=== PATIENT | male | born 1990 | race Caucasian/White ===

== ENCOUNTER 2020-03-31 08:16 | Emergency (ER) | payer OTHER, SELFPAY ==
[2020-03-31 08:09] VITALS: BP 103/56; PULSE 73; RESP 16; TEMP 36.8; O2SAT 100; BMI 22.1
--- NOTE | 2020-03-31 08:29 | RAD_ITS ---
STUDY: X-RAY - LEFT TIBIA AND FIBULA REASON FOR EXAM: Male, 30 years old. POST-OP PAIN. SURGERY 03/27/20 TECHNIQUE: 2 view(s) of the tibia and fibula were obtained. COMPARISON: None. FINDINGS: Intramedullary aidan fixation device is seen transfixing an oblique fracture of the distal tibial . 2 screws are seen transfixing the lateral malleolar fracture. Oblique fracture through the proximal fibular shaft with overriding of the fracture fragments. Soft tissue swelling. RAD/Tibia & Fibula 2 Views IMPRESSION: Postsurgical changes of the tibia and distal fibula with persistent oblique fracture of the proximal fibula. Soft tissue swelling. Electronically Signed: Michael Fay, at 9:16 EDT , Service support ,
[2020-03-31] MEDS: HYDROmorphone 1 MG/ML Syringe IM (09:12)
[2020-03-31 10:29] VITALS: BP 96/46; PULSE 73; RESP 16; O2SAT 91
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
--- NOTE | 2020-03-31 10:52 | ED.DEP ---
ED Disposition - Plan for ED Patient: Instructions: ED Wound Check Post Op Pain Referrals: Aryan Flores MD [Primary Care Provider] - Additional Instructions: see your surgeons as directed
== END 2020-03-31 11:41 | disposition home or self-care (01) ==
LOC: ED 08:56
PROVIDERS: Emergency Provider Emergency Medicine; PCP Family Medicine
DX: M79.605 Pain in left leg (principal); G89.18 Other acute postprocedural pain
CPT/HCPCS: 73590; 96372; 99284

== ENCOUNTER 2024-05-20 01:22 | Emergency (ER) | payer BC, SELFPAY ==
[2024-05-20 01:23] VITALS: BP 122/78; PULSE 84; RESP 17; TEMP 36.4; O2SAT 100; BMI 22.5
--- NOTE | 2024-05-20 01:43 | CT_ITS ---
INDICATION: right flank pain EXAMINATION: CT Abdomen And Pelvis W/O Contrast Injection TECHNIQUE: Helically acquired images were obtained of the abdomen and pelvis with sagittal and coronal reconstructed images. Individualized dose optimization techniques were used for this CT. IV contrast dosage and agent: None. Oral contrast: None. COMPARISON: None. FINDINGS: VESSELS: No abdominal aortic aneurysm. LIVER: No intrahepatic or extrahepatic biliary duct dilation. GALLBLADDER: No calcified stones. No evidence of cholecystitis. PANCREAS: No evidence of a mass. No evidence of pancreatitis. SPLEEN: Normal. ADRENAL GLANDS: Normal. KIDNEYS AND URETERS: No urinary tract stone. No hydronephrosis or hydroureter. No significant asymmetric perinephric stranding. URINARY BLADDER: Unremarkable. BOWEL: No evidence of diverticulosis or diverticulitis. Appendix appears normal. No evidence of bowel obstruction. REPRODUCTIVE ORGANS: Unremarkable. PERITONEUM: No intraabdominal free fluid or free air. LYMPH NODES: No pathologically enlarged mesenteric or retroperitoneal lymph nodes. ABDOMINAL WALL: No abdominal or pelvic wall hernia. BONES: No acute abnormality. LOWER CHEST: Visualized lung bases are unremarkable. CT/Abdomen/Pelvis without Cont IMPRESSION: 1. No acute abnormality. 2. No urinary tract stone or obstruction. Electronically Signed: Aryan Garcia DO at 2:45 EDT ,
[2024-05-20] MEDS: 0.9% Normal Saline (1000mL) 1,000 ML 999 ML IV (01:53)
[2024-05-20] MEDS: Ketorolac 30 MG/ML Syringe IV (01:53)
[2024-05-20] MEDS: Ondansetron 4 MG/2 ML Vial IV (01:53)
[2024-05-20 01:54] LABS: Absolute Lymphocyte Count 3.77 X10^3/uL (0.83-4.51); Basophil# 0.04 X10^3/uL; Basophil% 0.4 % (0-1); Eosinophil# 0.74 X10^3/uL; Hematocrit 42.1 % (40-54); Hemoglobin 14.1 g/dL (13.0-16.5); Lymphocyte # 3.77 X10^3/ul (0.83-4.51); Lymphocyte % 40.6 % (19-41); Mean Corp Hgb Conc 33.5 g/dL (32-36); Mean Corpuscular Hgb 30.5 pg (27.0-32.0); Mean Corpuscular Volume 90.9 fL (80-94); Mean Platelet Vol. 9.7 fl (6.2-12.0); Monocyte# 0.74 X10^3/uL; NRBC Flagged by Analyzer 0 % (0-5); Neutrophil # 3.97 X10^3/uL (2.7-7.7); Neutrophil % 42.7 % (47-70); Platelet Count 237 K/mm3 (150-450); RBC Distribution Width CV 12.2 % (11.6-14.6); RBC Distribution Width SD 40.6 fl (35.1-43.9); Red Blood Count 4.63 M/mm3 (4.6-6.2); White Blood Count 9.3 K/mm3 (4.4-11.0)
[2024-05-20 02:08] LABS: Anion Gap 5 (5-15); BUN 17 mg/dL (7-18); BUN/Creat Ratio 17.1 RATIO (10-20); Calcium,Total 9.5 mg/dL (8.5-10.1); Chloride 106 mmol/L (98-107); Creatinine, Serum 0.99 mg/dL (0.70-1.30); EST Glomerular Filtration Rate 91 mL/min (>60); Est Glom Filt Rate - Afr Amer 110 mL/min (>60); Estimated Creatinine Clearance 111.07 ml/min; Glucose 98 mg/dL (74-106); Potassium 3.8 mmol/L (3.5-5.1); Sodium Level 139 mmol/L (136-145)
[2024-05-20 03:40] VITALS: RESP 16; O2SAT 98
[2024-05-20 03:55] LABS: Color, Urine Yellow (Yellow); Glucose, Dipstick Normal (Normal); Leukocyte Esterase-Dipstick 100 /ul (Negative); Occult Blood-Urine 250 /ul (Negative); Urine Clarity Sl. Cloudy (Clear); Urine Urobilinogen 1 mg/dl (Normal); Urine pH 6.5 (5.0 - 8.0)
[2024-05-20 03:58] LABS: Ketone-Dipstick 15 mg/dl (Negative); Nitrite-Dipstick Positive (Negative); Protein-Dipstick 100 mg/dl (Negative); Urine Bilirubin Dipstick Negative (Negative)
[2024-05-20 04:00] LABS: White Blood Cells 10-25 SEEN /hpf (0-5)
[2024-05-20 04:01] LABS: Bacteria 2+ /hpf (None Seen); Mucous, Urine 3+ /hpf (<or=2+); Red Blood Cells-Urine 10-25 SEEN /hpf (0-5); Squamous Epithelial Cells - UA 5-10 SEEN /hpf (0-5)
--- NOTE | 2024-05-20 04:34 | EDS_ITS ---
HPI History of Present Illness Chief Complaint: Abd Pain Informant: patient Narrative Narrative: Patient is a 34-year-old male with no reported significant past medical history. He states that he was sleeping when he awoke from sleep with right sided back/abdominal pain. He denies any recent trauma or excessive activity. He states there is been no dysuria or hematuria. He reports nausea but this only occurred after the pain began. He states he took [id number] medication without any symptom improvement and secondary to his comes in for evaluation [facility] Medical History no medical history no medical history Home Medications ?Medication ?Instructions ?Recorded ?Last Taken ?Type ketorolac 10 mg tablet 10 mg PO 4X/DAY PRN pain 5 days 05/20/24 Unknown Rx #20 tabs ondansetron 4 mg disintegrating 4 mg PO TID PRN nausea and 05/20/24 Unknown Rx tablet vomiting #21 tabs oxycodone-acetaminophen 5 mg-325 1 tab PO Q6H PRN pain 3 days #12 05/20/24 Unknown Rx mg tablet (Percocet) tabs Allergy/AdvReac Type Severity Reaction Status Date / Time Penicillins Allergy Rash Verified 03/31/20 08:16 Surgical History no surgical history Social History Smoking Status: Current some day smoker tobacco type: cigarettes ROS ROS ED Constitutional Constitutional ED: Denies chills or fever(s) ENT ENT ED: Denies sore throat Cardiovascular Cardiovascular: Denies chest pain Respiratory/Chest Respiratory/Chest: Denies cough or dyspnea Gastrointestinal Gastrointestinal: Reports abdominal pain and nausea; Denies diarrhea or vomiting Genitourinary Genitourinary ED: Denies dysuria or hematuria Musculoskeletal Musculoskeletal: Reports back pain Integumentary Denies rash Neurologic Neurologic: Denies headache(s) Hematologic/Lymphatic Hematologic/Lymphatic: Denies easy bleeding or easy bruising EXAM Physical Exam Const Vital Signs: 05/20/24 01:23 05/20/24 03:40 Temperature 97.6 F L Temperature Source Oral Pulse Rate 84 Respiratory Rate 17 16 Blood Pressure 122/78 H Blood Pressure Mean 92 Pulse Ox 100 98 Oxygen Delivery Method Room Air Room Air Positive well nourished and well developed General Appearance ED: well developed; Negative for pallor HEENT Reports moist mucous membranes HEENT Narrative: No signs of infection noted in the posterior pharynx Eyes PERRL and EOMs intact bilaterally General Eye ED: Negative for scleral icterus Neck supple Neck Narrative: No nuchal rigidity or meningeal signs Resp normal respiratory effort and clear to auscultation bilaterally Cardio regular rate and regular rhythm Rate: other Other Details: Heart is regular rate and rhythm without murmurs rubs or gallops Radial and carotid pulses are equal and symmetric GI non-distended and no masses GI Narrative: Abdomen is soft and nondistended with normal active bowel sounds. Patient has mild pain with palpation in the right sided abdomen without voluntary guarding or rigidity or pulsatile mass. Auscultation: normoactive bowel sounds Palpation: soft Back/Spine Back/Spine Narrative: Positive right CVA pain noted Extremity normal to inspection Neuro oriented x3, CN's II-XII intact bilaterally and no sensory deficits noted Sensorium / Orientation: alert Motor Exam: strength 5/5 throughout Psych mental status grossly normal Skin no rashes or lesions noted and no wounds Skin Narrative: No overlying soft tissue changes to suggest trauma or infection General Skin Exam: Negative for jaundice or pallor MDM MDM MDM Narrative Medical decision making narrative: Patient arrived to ER with stable vitals. He reported that he had sudden onset of back and abdominal pain while sleeping that was sharp in nature. Differential diagnosis is for UTI versus pyelonephritis versus kidney stone versus atypical biliary colic or acute cholecystitis or pancreatitis. As history and exam is most consistent with kidney stone basic blood work with urine sample and a noncontrast CT were obtained. Labs revealed no signs of acute kidney injury or clinically significant electrolyte abnormality. Urine did show +2 bacteria but it was contaminated with epithelial cells and patient does not have dysuria and therefore do not feel this is true UTI. The patient CT scan did not reveal any obvious kidney stone but on the urine sample he gave there was a irregular solid object present in the urine sample cup that would correlate with a passed kidney stone and after doing so the patient's pain resolved. Therefore at this time with resolution of pain and negative workup showing no signs of SHEELA or urosepsis there is no need for admission and he is otherwise safe for discharge History & Record Review Discussion w/independent historian: Patient Lab Data Attestation: I reviewed the patient's lab results. Labs: Laboratory Results - last 24 hr 05/20/24 05/20/24 01:37 03:35 WBC 9.3 RBC 4.63 Hgb 14.1 Hct 42.1 MCV 90.9 MCH 30.5 MCHC 33.5 RDW Std Deviation 40.6 RDW Coeff of Francisca 12.2 Plt Count 237 MPV 9.7 Immature Gran % (Auto) 0.300 Neut % (Auto) 42.7 L Lymph % (Auto) 40.6 [place] % (Auto) 8.0 Eos % (Auto) 8.0 H Baso % (Auto) 0.4 Absolute Neuts (auto) 4.0 Absolute Lymphs (auto) 3.77 Nucleated RBC % 0 Sodium 139 Potassium 3.8 Chloride 106 Carbon Dioxide 28.0 Anion Gap 5 BUN 17 Creatinine 0.99 Estim Creat Clear Calc 111.07 Est GFR (MDRD) Af Amer 110 Est GFR (MDRD) Non-Af 91 BUN/Creatinine Ratio 17.1 Glucose 98 Calcium 9.5 Urine Color Yellow Urine Clarity Sl. Cloudy Urine pH 6.5 Ur Specific [place] 1.020 Urine Protein 100 H Urine Glucose (UA) Normal Urine Ketones 15 H Urine Occult Blood 250 H Urine Nitrite Positive H Urine Bilirubin Negative Urine Urobilinogen 1 H Ur Leukocyte Esterase 100 H Urine RBC 10-25 SEEN Urine WBC 10-25 SEEN Ur Squamous Epith Cells 5-10 SEEN Urine Bacteria 2+ Urine Mucus 3+ Radiography Diagnostic Testing: Clinical Impression(s) from Imaging Studies Abdomen/Pelvis CT 05/20/24 01:43 IMPRESSION: 1. No acute abnormality. 2. No urinary tract stone or obstruction. Electronically Signed: Aryan Garcia DO at 2:45 EDT Reading Location ID and State: [facility] / [place] Tel , Service support , Discharge Plan Triage Chief Complaint: Abd Pain ED Provider: Aris Kairmi Dx/Rx/DC Orders Clinical Impression: Kidney stone, Renal colic Instructions: ED Kidney Stone, Passed Prescriptions: New ketorolac 10 mg tablet 10 mg PO 4X/DAY PRN (Reason: pain) 5 Days Qty: 20 0RF oxycodone-acetaminophen [Percocet] 5-325 mg tablet 1 tab PO Q6H PRN (Reason: pain) 3 Days Qty: 12 0RF ondansetron 4 mg tablet,disintegrating 4 mg PO TID PRN (Reason: nausea and vomiting) Qty: 21 0RF Stand Alone Forms: ED Work / School Excuse Primary Care Provider: Aryan Flores Referrals: Aryan Flores MD [Primary Care Provider] - Activity Restrictions/Additional Instructions: Please return to the ER for repeat evaluation if you develop a fever over 100.4 or your pain is not controlled with the prescribed medication. Print Language: Mauritanian Disposition Disposition: Home, Self Care Discharge Date/Time: 05/20/24 05:04
[2024-05-20] MEDS: oxyCODONE 5 MG Tablet PO (04:52)
[2024-05-20 04:53] VITALS: BP 124/109; PULSE 65; RESP 18; TEMP 37.1; O2SAT 100
== END 2024-05-20 05:04 | disposition home or self-care (01) ==
PROVIDERS: Emergency Provider Emergency Medicine; PCP Family Medicine; Visit Provider Emergency Medicine
DX: N20.0 Calculus of kidney (principal); F17.210 Nicotine dependence, cigarettes, uncomplicated
CPT/HCPCS: 74176; 80048; 81001; 85025; 96361; 96374; 96375; 96376; 99283; J7030; J2405